=== PATIENT | female | born 1980 | race Two or more races ===

== ENCOUNTER 2016-12-05 06:44 | Emergency (ER) ==
[2016-12-05 06:44] VITALS: BMI 21.2
[2016-12-05 06:52] VITALS: BP 112/73; TEMP 99.9
[2016-12-05] MEDS ORDERED: SODIUM CHLORIDE 1,000 ML IV STA (07:33)
--- NOTE | 2016-12-05 07:33 | DI ---
Aeration: Two radiographic images of the chest. Comparison: None available. Reason for study: Cough. FINDINGS: No pneumothorax, pleural effusion, or focal consolidation. The cardiac silhouette is not enlarged. Impression: No acute cardiopulmonary process.
[2016-12-05 07:47] LABS: FLU INTERNAL QC INTERNAL QC VALID; RAPID FLU A NEGATIVE (NEGATIVE); RAPID FLU B NEGATIVE (NEGATIVE)
[2016-12-05 07:52] LABS: BASOPHILS % (AUTO) 0.3 % (0.0-3.0); HEMATOCRIT 39.1 % (37.0-47.0); HEMOGLOBIN 13.4 g/dl (12.0-16.0); IMMATURE GRANULOCYTE % (AUTO) 0.1 % (0.0-5.0); LYMPHOCYTES % (AUTO) 14.7 (10.0-50.0); MEAN CORPUSCULAR HEMOGLOBIN 31.6 pg (27.0-31.0); MEAN CORPUSCULAR HGB CONC 34.3 (31.8-35.4); MEAN CORPUSCULAR VOLUME 92.2 fl (81.0-99.0); MONOCYTES # (AUTO) 0.4 K/uL (0.4-2.0); MONOCYTES % (AUTO) 6.1 (0-10); NEUTROPHILS # (AUTO) 5.6 K/ul (2.0-6.9); NEUTROPHILS % (AUTO) 78.8; PLATELET COUNT 190 10^3/uL (140-440); RED BLOOD COUNT 4.24 10^6/ul (4.20-5.40); WHITE BLOOD COUNT 7.08 K/ul (4.6-10.2)
[2016-12-05 08:17] LABS: ALANINE AMINOTRANSFERASE 10 U/L (12-78); ALBUMIN 3.9 g/dL (3.4-5.0); ALBUMIN/GLOBULIN RATIO 1.05; ALKALINE PHOSPHATASE 60 U/L (42-98); ANION GAP 13.6; ASPARTATE AMINO TRANSFERASE 12 U/L (15-37); BILIRUBIN,TOTAL 0.46 mg/dL (0.00-1.20); BLOOD UREA NITROGEN 10 mg/dL (7-18); BUN/CREATININE RATIO 11.23; CALCIUM 9.5 mg/dL (8.2-10.2); CARBON DIOXIDE 23 mmol/L (21-32); CHLORIDE 106 mmol/L (98-107); CREATINE KINASE 61 U/L; CREATININE 0.89 mg/dL (0.60-1.30); GLUCOSE 176 mg/dL (70-110); POTASSIUM 3.6 mmol/L (3.5-5.10); SODIUM 139 mmol/L (136-145); TOTAL PROTEIN 7.6 g/dL (6.4-8.2)
--- NOTE | 2016-12-05 08:43 | ED.PDOC ---
General ED Provider: Dr. FRANKLYN PAIGE Chief Complaint: Shortness of Air Stated Complaint: cough , flu like symptoms Time Seen by Physician: 07:00 Mode of Arrival: Walk-In Information Source: Patient Exam Limitations: No limitations Primary Care Provider: DANIEL ZACARIAS Nursing and Triage Documentation Reviewed and Agree: Yes Respiratory Complaint Exam - Respiratory Complaint/Exam Onset/Duration: this morning Symptoms Are: Resolved Initial Severity: Mild Current Severity: None Location: Chest Character: Reports: Non-productive cough Aggravating: Reports: None Alleviating: Reports: None Associated Signs and Symptoms: Denies: Rapid breathing, Dyspnea, Fever, Chills, Chest pain, Pleuritic chest pain, Wheezing, Hemoptysis, Dizziness, Calf pain, Calf swelling, Edema, URI, Nasal congestion, Hoarseness, Sinus discomfort, Vomiting, Sore throat, Weight loss, Decreased oral intake, Increased thirst, Increased appetite, Increased urination History of Healthcare-Acquired Pneumonia: No Related Surgical History: Reports: None Pulmonary Embolism Risk Factors: None Cardiac Risk Factors: Reports: None Pseudomonas Risk Factors: Reports: None Tuberculosis Risk Factors: Reports: None Status Asthmaticus Risk Factors: Reports: None Home Oxygen Use: No Recent Stress Test: No Recent Echo/LV Function: No Current Antibiotic Use: No Current Asthma Medication Use: No Respiratory Distress: None Inadequate Respiratory Effort: No Dysphagia Present: No Stridor Present: No JVD Present: No Accessory Muscle Use: No Retractions: Not Present Diminished Breath Sounds: No Differential Diagnoses: Pneumonia, Bronchitis Review of Systems - Review Of Systems Constitutional: Reports: No symptoms Eyes: Reports: No symptoms Ears, Nose, Mouth, Throat: Reports: No symptoms Respiratory: Reports: Cough, Short of air Cardiac: Reports: No symptoms GI: Reports: No symptoms : Reports: No symptoms Musculoskeletal: Reports: No symptoms Skin: Reports: No symptoms Neurological: Reports: No symptoms Endocrine: Reports: No symptoms Hematologic/Lymphatic: Reports: No symptoms All Other Systems: Reviewed and Negative Past Medical History - Past Medical History Endocrine: Reports: None Cardiovascular: Reports: None Respiratory: Reports: None Hematological: Reports: None Gastrointestinal: Reports: None Genitourinary: Reports: UTI Neuro/Psych: Reports: Anxiety, Depression Musculoskeletal: Reports: None Cancer: Reports: None Last Menstrual Period: 5 days ago Other Pertinent Past Medical History: Trichomonus vaginosis. - Surgical History General Surgical History: Reports: None - Family History Family History: Reports: None - Social History Smoking Status: Never smoker Hx Substance Use: No Alcohol Screening: None Physical Exam - Physical Exam Appearance: Well-appearing, No pain distress, Well-nourished Eyes: NERY, EOMI, Conjunctiva clear ENT: Ears normal, Nose normal, Oropharynx normal Respiratory: Airway patent, Breath sounds clear, Breath sounds equal, Respirations nonlabored Cardiovascular: RRR, Pulses normal, No rub, No murmur GI/: Soft, Nontender, No masses, Bowel sounds normal, No Organomegaly Musculoskeletal: Normal strength, ROM intact, No edema, No calf tenderness Skin: Warm, Dry, Normal color Neurological: Sensation intact, Motor intact, Reflexes intact, Cranial nerves intact, Alert, Oriented Psychiatric: Affect appropriate, Mood appropriate Interpretation - Radiology Interpretation Radiology Interpretation By: Radiologist Radiology Results: No acute changes Critical Care Note - Critical Care Note Total Time (mins): 0 Course - Course Hematology/Chemistry: 12/05/16 07:40 12/05/16 07:40 Orders, Labs, Meds: Lab Review 12/05/16 12/05/16 07:25 07:40 WBC 7.08 RBC 4.24 Hgb 13.4 Hct 39.1 MCV 92.2 MCH 31.6 H MCHC 34.3 RDW Coeff of [place] 11.7 Plt Count 190 Immature Gran % (Auto) 0.1 Neut % (Auto) 78.8 Lymph % (Auto) 14.7 [place] % (Auto) 6.1 Eos % (Auto) 0.0 Baso % (Auto) 0.3 Immature Gran # (Auto) 0.0 Neut # 5.6 Lymph # 1.0 [place] # 0.4 Eos # 0.0 Baso # 0.0 Sodium 139 Potassium 3.6 Chloride 106 Carbon Dioxide 23 Anion Gap 13.6 BUN 10 Creatinine 0.89 Estimated GFR (MDRD) 72.00 BUN/Creatinine Ratio 11.23 Glucose 176 H Lactic Acid 41.5 H Calcium 9.5 Total Bilirubin 0.46 AST 12 L ALT 10 L Alkaline Phosphatase 60 Total Creatine Kinase 61 Troponin I < 0.0100 Total Protein 7.6 Albumin 3.9 Globulin 3.7 Albumin/Globulin Ratio 1.05 Influenza A (Rapid) Negative Influenza B (Rapid) Negative Orders Category Date Time Status EKG-(ED ONLY) Stat CARDIO 12/05/16 07:07 Completed EKG-(ED ONLY) Stat CARDIO 12/05/16 07:07 Stop Req ED IV/MEDIPORT/POWERPORT .ONCE EMERGENCY 12/05/16 07:33 Active ABG Stat LAB 12/05/16 07:08 Ordered BLOOD CULTURE Stat LAB 12/05/16 07:40 Received CBC W/ AUTO DIFF Stat LAB 12/05/16 07:40 Completed COMPREHENSIVE METABOLIC PANEL Stat LAB 12/05/16 07:40 Completed CREATINE KINASE Stat LAB 12/05/16 07:40 Completed LACTIC ACID Stat LAB 12/05/16 07:40 Completed MOLECULAR GROUP A STREP Stat LAB 12/05/16 07:25 Results RAPID FLU A/B Stat LAB 12/05/16 07:25 Completed STREP SCREEN Stat LAB 12/05/16 07:25 Results TROPONIN I Stat LAB 12/05/16 07:40 Completed 0.9 % Sodium Chloride [Saline Flush] MEDS 12/05/16 07:33 Active 1 syr IVF PRN PRN Sodium Chloride 0.9% [Sodium Chloride] 1,000 ml MEDS 12/05/16 07:33 Active IV 125 mls/hr CHEST, 2 VIEWS PA & LAT Stat RADS 12/05/16 07:06 Completed Medications Generic Name Dose Route Start Last Admin Trade Name Freq PRN Reason Stop Dose Admin Sodium Chloride 1,000 mls @ 125 mls/hr 12/05/16 07:33 12/05/16 08:31 Sodium Chloride IV 12/05/16 15:32 125 mls/hr .Q8H STA Administration Sodium Chloride 1 syr 12/05/16 07:33 Saline Flush IVF PRN PRN To flush IV Vital Signs: Temp Pulse Resp BP Pulse Ox 12/05/16 06:44 99.9 F H 128 H 20 112/73 100 Departure - Departure Time of Disposition: 08:42 Disposition: HOME SELF-CARE Discharge Problem: Viral syndrome Instructions: Cold Symptoms (ED), Viral Syndrome (ED) Condition: Good Pt referred to PMD for follow-up: No Additional Instructions: Please call your Family Physician as soon as possible to schedule a follow-up appointment. Allergies/Adverse Reactions: Allergies No Known Allergies Allergy (Verified 12/05/16 06:52) Home Medications: Ambulatory Orders Dextroamphetamine/Amphetamine [Adderall 20 Mg Tablet] 20 mg PO BID #60 Disposition Discussed With: Patient
== END 2016-12-05 08:55 | disposition home or self-care (01) ==
LOC: ED 06:44
DX: B34.9 Viral infection, unspecified (principal); R06.02 Shortness of breath; R73.9 Hyperglycemia, unspecified
CPT/HCPCS: 36415; 80053; 82550; 83605; 84484; 85025; 85379; 87040; 87651; 87804; 87880; 93005; 93010; 96360; 99284; 99285

== ENCOUNTER 2016-12-10 08:21 | Outpatient (CLI) ==
[2016-12-10 09:11] LABS: CHOL/HDL RATIO 3.1 (4.5-5.5)
== END 2016-12-10 08:22 | disposition home or self-care (01) ==
LOC: LAB 08:21
PROVIDERS: ATTEND Nurse Practitioner Family
DX: R94.31 Abnormal electrocardiogram [ECG] [EKG] (principal); E75.6 Lipid storage disorder, unspecified; R73.09 Other abnormal glucose
CPT/HCPCS: 36415; 80061; 83036

== ENCOUNTER 2017-01-04 07:12 | Outpatient (CLI) ==
--- NOTE | 2017-01-06 12:18 | ECHO2D ---
Date of Exam: 01/04/17 [facility]ing Phys[facility] Reason for Echo: ABNORMAL EKG M-Mode Normal Adult Results LV Dimensions Normal Adult Results AoV Opening excursions >1.6 >1.6 LVEDD-base- 3.5-5.8 3.7 Ao root dimensions 2.0-3.7 2.8 LVESD-base- 3.1-4.6 L. Atrium dimensions 1.9-3.8 3.2 Post. Wall thickness 0.8-1.1 0.8 IV septum (thickness) 0.7-1.2 0.8 Post. Wall excursion 0.72-1.3 NORMAL Septal motion NORMAL Systolic motion R. Ventricular cavity 1.5-2.0 NORMAL LVEF 60% 55% Paradoxical septal wall motion NORMAL 2-D : 2-D M Mode Echocardiogram was performed using apical four chamber and left parasternal long and short axis views. Mitral, tricuspid and aortic valves appear to be normal. Contractility of the left ventricle seems to be normal, so is the cavity size. Left atrial cavity size and aortic root appear to be normal. There is no pericardial effusion. There is no thrombus noted in the left ventricular or left aortic cavity. No mitral valve prolapse noted. M-MODE: MV: NORMAL AV: NORMAL TV: NORMAL PV: CHAMBER SIZE: NORMAL WALL MOTION: NORMAL PERICARDIUM: NORMAL INTERPRETATION: 1. NORMAL 2 "D" "M" MODE ECHO MTDD
== END 2017-01-04 07:13 | disposition home or self-care (01) ==
LOC: CAR 07:12
PROVIDERS: ATTEND Internal Medicine
DX: R94.31 Abnormal electrocardiogram [ECG] [EKG] (principal)

== ENCOUNTER 2017-01-11 09:22 | Outpatient (CLI) ==
--- NOTE | 2017-01-13 12:17 | HOLTER ---
PATIENT INFORMATION AND COMMENTS Indications: PALPITATIONS __ Patient Medications: NO MEDICATIONS LISTED __ Pre-procedure Summary: Protocol: Standard Heart Rate Started: 01/11/17940 Minimum: 60 BPM Weight: 120 LBS Ended: 01/12/17828 Maximum: 192 BPM Height: 63" Duration: 22 HRS 47 MIN Average: 91 BPM _ INTERPRETATIONS/OBSERVATIONS: 1. BASIC RHYTHM: SINUS, RATE 60 TO 120/MINUTE, AVERAGE 90/MINUTE 2. FEW INFREQUENT ISOLATED PAC'S AND PVC'S 3. NO ST-T WAVE CHANGES FROM BASELINE 4. ACTIVITY LOG NOT AVAILABLE MTDD
== END 2017-01-11 09:23 | disposition home or self-care (01) ==
LOC: CAR 09:22
PROVIDERS: ATTEND Internal Medicine
DX: R00.2 Palpitations (principal)
CPT/HCPCS: 93224

== ENCOUNTER 2017-01-15 07:20 | Outpatient (CLI) ==
--- NOTE | 2017-01-18 12:50 | STRESSECHO ---
Date of Test: 01/15/17 Reason for Exam: ABNORMAL EKG, PALPITATIONS, CHEST PAIN Ordering Physician: JOSUE Current Medications: ADEROL Resting EKG: SINUS RHYTHM/NO ACUTE CHANGES Target Heart Rate: 157/185 STAGE MPH/GRADE HEART RATE BPM BLOOD PRESSURE mmhg RHYTHM S-T SEGMENT +/- UP DOWN SYMPTOMS,COMMENTS At Rest 90 120/76 SR X NONE 1 1.7/10% 110/70 SR X NONE 2 2.5/12% 3 3.4/14% 4 4.2/16% 5 5.0/18% Immediately after 110/70 SR X NONE Durations of Exercise: 3:00 Maximum Heart Rate Reached: 165 5 MIN POST EXERCISE: SINUS RHYTHM, +/- INTERPRETATION: 99% OXYGEN SATURATION WITH EXERCISE ON ROOM AIR METS 4.6 1. NO EVIDENCE OF ISCHEMIA BY ST-T WAVE 2. NO CHEST PAIN OR CHEST DISCOMFORT 3. POOR EXERCISE TOLERANCE 4. NO ARRHYTHMIAS 5. BLOOD PRESSURE RESPONSE: ADEQUATE NORMAL LEFT VENTRICULAR CONTRACTILITY--RESTING AND POST EXERCISE MTDD
--- NOTE | 2017-01-18 12:59 | ECHOSTRESS ---
Date of Exam: 01/15/17 Ordering Physician: JOSUE Reason for Echo: ABNORMAL EKG, PALPITATIONS, STRESS TEST--NO ISCHEMIA M-Mode Normal Adult Results LV Dimensions Normal Adult Results AoV Opening excursions >1.6 LVEDD-base- 3.5-5.8 Ao root dimensions 2.0-3.7 LVESD-base- 3.1-4.6 L. Atrium dimensions 1.9-3.8 Post. Wall thickness 0.8-1.1 IV septum (thickness) 0.7-1.2 Post. Wall excursion 0.72-1.3 Septal motion Systolic motion R. Ventricular cavity 1.5-2.0 LVEF 60% Paradoxical septal wall motion 2-D: NORMAL LEFT VENTRICULAR CONTRACTILITY--RESTING AND POST EXERCISE M-MODE: MV: AV: TV: PV: CHAMBER SIZE: WALL MOTION: NORMAL LEFT VENTRICULAR CONTRACTILITY--RESTING AND POST EXERCISE PERICARDIUM: INTERPRETATION: 1. NORMAL LEFT VENTRICULAR CONTRACTILITY--RESTING AND POST EXERCISE MTDD
== END 2017-01-15 07:21 | disposition home or self-care (01) ==
LOC: CAR 07:20
PROVIDERS: ATTEND Nurse Practitioner Family
DX: R94.31 Abnormal electrocardiogram [ECG] [EKG] (principal)

== ENCOUNTER 2017-05-05 14:08 | Outpatient (CLI) ==
[2017-05-05 14:27] LABS: BASOPHILS % (AUTO) 0.4 % (0.0-3.0); EOSINOPHILS # (AUTO) 0.1 K/ul (0.0-0.7); EOSINOPHILS % (AUTO) 0.8 % (0.0-7.0); HEMATOCRIT 37.1 % (37.0-47.0); HEMOGLOBIN 12.5 g/dl (12.0-16.0); IMMATURE GRANULOCYTE % (AUTO) 0.3 % (0.0-5.0); LYMPHOCYTES # (AUTO) 2.5 K/uL (0.60-3.4); LYMPHOCYTES % (AUTO) 33.1 (10.0-50.0); MEAN CORPUSCULAR HEMOGLOBIN 31.3 pg (27.0-31.0); MEAN CORPUSCULAR HGB CONC 33.7 (31.8-35.4); MEAN CORPUSCULAR VOLUME 92.8 fl (81.0-99.0); MONOCYTES # (AUTO) 0.4 K/uL (0.4-2.0); MONOCYTES % (AUTO) 5.4 (0-10); NEUTROPHILS # (AUTO) 4.5 K/ul (2.0-6.9); PLATELET COUNT 196 10^3/uL (140-440); WHITE BLOOD COUNT 7.44 K/ul (4.6-10.2)
[2017-05-05 15:17] LABS: ERYTHROCYTE SEDIMENTATION RATE 8 mm/hr (0-20); ESR INTERNAL QC INTERNAL QC VALID
[2017-05-05 15:49] LABS: ALBUMIN 3.3 g/dL (3.4-5.0); ALBUMIN/GLOBULIN RATIO 1.38; ANION GAP 12.2; BILIRUBIN,TOTAL 0.37 mg/dL (0.00-1.20); BUN/CREATININE RATIO 11.42; CALCIUM 8.9 mg/dL (8.2-10.2); CREATININE 0.7 mg/dL (0.60-1.30); POTASSIUM 4.2 mmol/L (3.5-5.10); TOTAL PROTEIN 5.7 g/dL (6.4-8.2)
[2017-05-06 06:18] LABS: TRIIODOTHYRONINE (T3) 104 ng/dL (71-180)
[2017-05-06 08:15] LABS: C-REACTIVE PROTEIN 1.1 mg/L (0.0-4.9); RHEUMATOID ARTHRITIS FACTOR < 10.0 IU/mL (0.0-13.9)
[2017-05-06 09:37] LABS: ANTI-NUCLEAR ANTIBODY SCREEN Negative (Negative)
== END 2017-05-05 14:09 | disposition home or self-care (01) ==
LOC: LAB 14:08
PROVIDERS: ATTEND Emergency Medicine
DX: R73.09 Other abnormal glucose (principal); F41.8 Other specified anxiety disorders; M25.50 Pain in unspecified joint; M25.60 Stiffness of unspecified joint, not elsewhere classified
CPT/HCPCS: 36415; 80053; 80061; 84436; 84443; 84480; 85025; 85651; 86038; 86140; 86430

== ENCOUNTER 2017-07-05 18:44 | Emergency (ER) ==
[2017-07-05 18:50] VITALS: BP 102/61; TEMP 98.5; BMI 22.1
[2017-07-05 19:05] LABS: BILIRUBIN,URINE Negative (NEGATIVE); KETONES,URINE Negative (NEGATIVE); LEUKOCYTE ESTERASE ,URINE Negative (NEGATIVE); NITRITE,URINE Negative (NEGATIVE); PROTEIN,URINE Negative (NEGATIVE); URINE, BLOOD Trace-intact (NEGATIVE)
--- NOTE | 2017-07-05 19:05 | ED.PDOC ---
General ED Provider: Dr. LAMINE ARANDA-ER Chief Complaint: Urinary Problem Stated Complaint: im hurting when i pee for 2 days Time Seen by Physician: 19:00 Mode of Arrival: Walk-In Information Source: Patient Exam Limitations: No limitations Primary Care Provider[facility] Nursing and Triage Documentation Reviewed and Agree: Yes Complaint Exam - UTI Female Complaint/Exam Patient Complains of: Reports: Painful urination Onset/Duration: 2 days Symptoms Are: Still present Timing: Constant Initial Severity: Mild Current Severity: Mild Location of Pain: Reports: Suprapubic Associated Signs and Symptoms: Denies: Fever, Chills, Flank pain, Dyspareunia, Vaginal discharge Patient Rh Status: Unknown CVA Tenderness: No Suprapubic Tenderness: No Differential Diagnoses: Cystitis Review of Systems - Review Of Systems Constitutional: Reports: No symptoms Eyes: Reports: No symptoms Ears, Nose, Mouth, Throat: Reports: No symptoms Respiratory: Reports: No symptoms Cardiac: Reports: No symptoms GI: Reports: No symptoms : Reports: Burning, Dysuria, Frequency Musculoskeletal: Reports: No symptoms Skin: Reports: No symptoms Neurological: Reports: No symptoms Endocrine: Reports: No symptoms Hematologic/Lymphatic: Reports: No symptoms All Other Systems: Reviewed and Negative Past Medical History - Past Medical History Previously Healthy: Yes Endocrine: Reports: None Cardiovascular: Reports: None Respiratory: Reports: None Hematological: Reports: None Gastrointestinal: Reports: None Genitourinary: Reports: UTI Neuro/Psych: Reports: Anxiety, Depression Musculoskeletal: Reports: None Cancer: Reports: None Last Menstrual Period: 1 week Other Pertinent Past Medical History: Trichomonus vaginosis. - Surgical History General Surgical History: Reports: None - Family History Family History: Reports: None - Social History Smoking Status: Never smoker Hx Substance Use: No Alcohol Screening: None Lives: With family - Immunizations Tetanus Shot up to Date: Yes Physical Exam - Physical Exam Appearance: Well-appearing, No pain distress, Well-nourished Eyes: NERY, EOMI, Conjunctiva clear ENT: Ears normal Neck: Supple Respiratory: Airway patent, Breath sounds clear, Breath sounds equal, Respirations nonlabored Cardiovascular: RRR, Pulses normal, No rub, No murmur GI/: Soft, Nontender, No masses, Bowel sounds normal, No Organomegaly Musculoskeletal: Normal strength, ROM intact, No edema, No calf tenderness Skin: Warm, Dry, Normal color Neurological: Sensation intact, Motor intact, Reflexes intact, Cranial nerves intact, Alert, Oriented Psychiatric: Affect appropriate, Mood appropriate Critical Care Note - Critical Care Note Total Time (mins): 0 Course - Course Orders, Labs, Meds: Lab Review 07/05/17 07/05/17 19:00 19:00 Urine Color Yellow Urine Clarity Cloudy Urine pH 6.0 Ur Specific [place] >=1.030 Urine Protein Negative Urine Glucose (UA) Negative Urine Ketones Negative Urine Blood Trace-intact Urine Nitrite Negative Urine Bilirubin Negative Urine Urobilinogen 1.0 Ur Leukocyte Esterase Negative Urine Microscopic RBC 2-5 Urine Microscopic WBC 0-2 Ur Squamous Epith Cells 0-2 Urine Bacteria 3+ Urine Test Negative Orders Category Date Time Status URINALYSIS C & S IF INDICATED Stat LAB 07/05/17 19:00 Completed URINE CULTURE Stat LAB 07/05/17 19:00 Received URINE Stat LAB 07/05/17 19:00 Completed Vital Signs: Temp Pulse Resp BP Pulse Ox 07/05/17 18:47 98.5 F 71 18 102/61 100 Departure - Departure Time of Disposition: 19:19 Disposition: HOME SELF-CARE Discharge Problem: Cystitis Instructions: Urinary Tract Infection in Women (ED) Condition: Good Pt referred to PMD for follow-up: Yes Additional Instructions: cipro 500mg bid x 7days--pyridium 200mg tid with food x 2 days #6--f/u wtih pcp to make sure infction has resolved Allergies/Adverse Reactions: Allergies No Known Allergies Allergy (Verified 07/05/17 18:54) Home Medications: Ambulatory Orders 1 [No Reported Medications] 07/05/17 Disposition Discussed With: Patient
[2017-07-05 19:12] LABS: ADD URINE MICROSCOPIC YES; URINE PREGNANCY INTERNAL QC INTERNAL QC VALID
[2017-07-05 19:13] LABS: BACTERIA,URINE 3+ (NOT PRESENT)
== END 2017-07-05 19:35 | disposition home or self-care (01) ==
LOC: ED 18:44
DX: N30.90 Cystitis, unspecified without hematuria (principal)
CPT/HCPCS: 81001; 81025; 87086; 87186; 99283

== ENCOUNTER 2017-08-25 11:57 | Emergency (ER) ==
[2017-08-25 12:08] VITALS: BP 105/66; TEMP 99.9; BMI 22.8
--- NOTE | 2017-08-25 13:24 | ED.PDOC ---
General ED Provider: Dr. BUDDY CAMPBELL Chief Complaint: Stated Complaint: Recently ; Left flank pain Time Seen by Physician: 13:05 Mode of Arrival: Walk-In Information Source: Patient Exam Limitations: No limitations [facility] Nursing and Triage Documentation Reviewed and Agree: Yes Review of Systems - Review Of Systems Constitutional: Reports: No symptoms Respiratory: Reports: No symptoms Cardiac: Reports: No symptoms GI: Reports: No symptoms : Reports: Flank pain. Denies: Burning, Dysuria, Discharge, Frequency Neurological: Reports: No symptoms All Other Systems: Reviewed and Negative Past Medical History - Past Medical History Previously Healthy: Yes Endocrine: Reports: None Cardiovascular: Reports: None Respiratory: Reports: None Hematological: Reports: None Gastrointestinal: Reports: None Genitourinary: Reports: UTI Neuro/Psych: Reports: Anxiety, Depression Musculoskeletal: Reports: None Cancer: Reports: None Last Menstrual Period: 6-8 months Other Pertinent Past Medical History: Trichomonus vaginosis. - Surgical History General Surgical History: Reports: None - Family History Family History: Reports: None - Social History Smoking Status: Never smoker Hx Substance Use: No Alcohol Screening: None Physical Exam - Physical Exam Appearance: Well-appearing Eyes: NERY ENT: Oropharynx normal Neck: Nonsupple Respiratory: Airway patent, Breath sounds equal Cardiovascular: RRR, Pulses normal GI/: Soft, Nontender, No masses, Bowel sounds normal, Splenomegaly Musculoskeletal: Normal strength, No edema Skin: Warm, Dry, Normal color Neurological: Sensation intact, Motor intact Psychiatric: Affect appropriate, Mood appropriate Critical Care Note - Critical Care Note Total Time (mins): 15 Course - Course Hematology/Chemistry: 08/25/17 13:40 08/25/17 13:40 Orders, Labs, Meds: Lab Review 08/25/17 08/25/17 13:40 13:40 WBC 8.78 RBC 4.14 L Hgb 13.0 Hct 37.7 MCV 91.1 MCH 31.4 H MCHC 34.5 RDW Coeff of [place] 12.2 Plt Count 205 Immature Gran % (Auto) 0.1 Neut % (Auto) 60.4 Lymph % (Auto) 30.4 [place] % (Auto) 8.1 Eos % (Auto) 0.7 Baso % (Auto) 0.3 Immature Gran # (Auto) 0.0 Neut # 5.3 Lymph # 2.7 [place] # 0.7 Eos # 0.1 Baso # 0.0 Sodium 139 Potassium 4.3 Chloride 106 Carbon Dioxide 24 Anion Gap 13.3 BUN 9 Creatinine 0.72 Estimated GFR (MDRD) 92.00 BUN/Creatinine Ratio 12.50 Glucose 88 Calcium 8.9 Total Bilirubin 0.53 AST 17 ALT 8 L Alkaline Phosphatase 43 Total Protein 6.3 L Albumin 3.4 Globulin 2.9 Albumin/Globulin Ratio 1.17 HCG, Quant Pending Orders Category Date Time Status CBC W/ AUTO DIFF Stat LAB 08/25/17 13:40 Completed COMPREHENSIVE METABOLIC PANEL Stat LAB 08/25/17 13:40 Results HCG,QUANTITATIVE Stat LAB 08/25/17 13:40 Results URINALYSIS C & S IF INDICATED Stat LAB 08/25/17 12:50 Received Vital Signs: Temp Pulse Resp BP Pulse Ox 08/25/17 11:58 99.9 F H 89 20 105/66 99 Departure - Departure Time of Disposition: 14:31 Disposition: HOME SELF-CARE Discharge Problem: Flank pain Instructions: Flank Pain (ED) Condition: Good Pt referred to PMD for follow-up: Yes (Call for appointment) Additional Instructions: Follow up with primary care; call back later to verify final lab results. Allergies/Adverse Reactions: Allergies No Known Allergies Allergy (Verified 08/25/17 12:09)
[2017-08-25 13:45] LABS: BASOPHILS % (AUTO) 0.3 % (0.0-3.0); EOSINOPHILS # (AUTO) 0.1 K/ul (0.0-0.7); EOSINOPHILS % (AUTO) 0.7 % (0.0-7.0); HEMATOCRIT 37.7 % (37.0-47.0); IMMATURE GRANULOCYTE % (AUTO) 0.1 % (0.0-5.0); LYMPHOCYTES # (AUTO) 2.7 K/uL (0.60-3.4); LYMPHOCYTES % (AUTO) 30.4 (10.0-50.0); MEAN CORPUSCULAR HEMOGLOBIN 31.4 pg (27.0-31.0); MEAN CORPUSCULAR HGB CONC 34.5 (31.8-35.4); MEAN CORPUSCULAR VOLUME 91.1 fl (81.0-99.0); MONOCYTES # (AUTO) 0.7 K/uL (0.4-2.0); MONOCYTES % (AUTO) 8.1 (0-10); NEUTROPHILS # (AUTO) 5.3 K/ul (2.0-6.9); NEUTROPHILS % (AUTO) 60.4; PLATELET COUNT 205 10^3/uL (140-440); RED BLOOD COUNT 4.14 10^6/ul (4.20-5.40); WHITE BLOOD COUNT 8.78 K/ul (4.6-10.2)
[2017-08-25 14:18] LABS: ALBUMIN 3.4 g/dL (3.4-5.0); ALBUMIN/GLOBULIN RATIO 1.17; ANION GAP 13.3; BILIRUBIN,TOTAL 0.53 mg/dL (0.00-1.20); BUN/CREATININE RATIO 12.5; CALCIUM 8.9 mg/dL (8.2-10.2); CREATININE 0.72 mg/dL (0.60-1.30); POTASSIUM 4.3 mmol/L (3.5-5.10); TOTAL PROTEIN 6.3 g/dL (6.4-8.2)
[2017-08-25 14:36] LABS: ADD URINE MICROSCOPIC NO; BILIRUBIN,URINE Negative (NEGATIVE); KETONES,URINE Negative (NEGATIVE); LEUKOCYTE ESTERASE ,URINE Negative (NEGATIVE); NITRITE,URINE Negative (NEGATIVE); PROTEIN,URINE Negative (NEGATIVE); URINE, BLOOD Negative (NEGATIVE)
== END 2017-08-25 14:38 | disposition home or self-care (01) ==
LOC: ED 11:57
DX: R10.9 Unspecified abdominal pain (principal); Z33.1 Pregnant state, incidental
CPT/HCPCS: 36415; 80053; 81001; 84702; 85025; 99283

== ENCOUNTER 2018-02-16 22:49 | Emergency (ER) | payer OTHER ==
[2018-02-16 23:05] VITALS: BP 102/66; TEMP 98.7; BMI 27.6
--- NOTE | 2018-02-16 23:17 | ED.PDOC ---
General ED Provider: Dr. LAMINE ARANDA-ER Chief Complaint: Abdominal Pain Stated Complaint: im hurting Time Seen by Physician: 23:15 Mode of Arrival: Walk-In Information Source: Patient Exam Limitations: No limitations Primary Care [facility] Nursing and Triage Documentation Reviewed and Agree: Yes Reviewed sepsis parameters & appropriate labs ordered?: Yes System Inflammatory Response Syndrome: Not Applicable Sepsis Protocol: For patient's 13 years and over: Temp is 96.8 and below OR 101 and greater Pulse >90 BPM Resp >20/minute Acutely Altered Mental Status Are patient's symptoms suggestive of a new infection, such as: -Pneumonia -Skin, Soft Tissue -Endocarditis -UTI -Bone, Joint Infection -Implantable Device -Acute Abdominal Infection -Wound Infection -Meningitis -Blood Stream Catheter Infection -Unknown GI Complaint Exam - Abdominal Pain Complaint/Exam Onset: Gradual Duration: several houirs Symptoms Are: Still present Timing: Constant Initial Severity: Moderate Current Severity: Mild Location of Pain: LLQ Radiates To: Reports: Back Character: Reports: Dull, Aching Aggravating: Reports: None Alleviating: Reports: None Associated Signs and Symptoms: Denies: Diaphoresis, Fever, Cough, Chest pain, Dizziness, Back pain, Constipation, Blood in stool, Dysuria, Urinary frequency, Decreased urine output, Decreased appetite, Vaginal bleeding, Vaginal discharge , Nausea, Vomiting, Diarrhea, Sore throat, Decreased activity Ovarian Torsion Risk Factors: Reports: Reproductive age Surgical Obstruction Risk Factors: Reports: None Related Surgical History: Reports: None Patient Rh Status: Unknown Abdominal Findings: Present: None Differential Diagnoses: Constipation, Pancreatitis, UTI, , Ectopic , Ovarian Cyst, PID Review of Systems - Review Of Systems Constitutional: Reports: No symptoms Eyes: Reports: No symptoms Ears, Nose, Mouth, Throat: Reports: No symptoms Respiratory: Reports: No symptoms Cardiac: Reports: No symptoms GI: Reports: Abdominal pain : Reports: No symptoms Musculoskeletal: Reports: No symptoms Skin: Reports: No symptoms Neurological: Reports: No symptoms Endocrine: Reports: No symptoms Hematologic/Lymphatic: Reports: No symptoms All Other Systems: Reviewed and Negative Past Medical History - Past Medical History Previously Healthy: Yes Endocrine: Reports: None Cardiovascular: Reports: None Respiratory: Reports: None Hematological: Reports: None Gastrointestinal: Reports: None Genitourinary: Reports: UTI Neuro/Psych: Reports: Anxiety, Depression Musculoskeletal: Reports: None Cancer: Reports: None Last Menstrual Period: 07/12/17 Other Pertinent Past Medical History: Trichomonus vaginosis. - Surgical History General Surgical History: Reports: None - Family History Family History: Reports: None - Social History Smoking Status: Never smoker Hx Substance Use: No Alcohol Screening: None - Immunizations Tetanus Shot up to Date: Yes Physical Exam - Physical Exam Appearance: Well-appearing, No pain distress, Well-nourished Pain Distress: Mild Eyes: NERY, EOMI, Conjunctiva clear ENT: Ears normal, Nose normal, Oropharynx normal Neck: Supple Respiratory: Airway patent, Breath sounds clear, Breath sounds equal, Respirations nonlabored Cardiovascular: RRR, Pulses normal, No rub, No murmur GI/: Soft, Nontender, No masses, Bowel sounds normal, No Organomegaly Musculoskeletal: Normal strength Skin: Warm Neurological: Sensation intact Psychiatric: Affect appropriate Critical Care Note - Critical Care Note Total Time (mins): 0 Course - Course Orders, Labs, Meds: informed the patient we did not have u/s services--she sees ob at [facility]-- offered to talk to [facility] and transfer the patient but she declines Vital Signs: Temp Pulse Resp BP Pulse Ox 02/16/18 22:57 98.7 F 87 20 102/66 97 Departure - Departure Time of Disposition: 23:17 Disposition: AMA Discharge Problem: Abdominal pain Instructions: Acute Abdominal Pain (ED) Condition: Good Pt referred to PMD for follow-up: No IPMP verified?: No Allergies/Adverse Reactions: Allergies No Known Allergies Allergy (Verified 02/16/18 23:04) Disposition Discussed With: Patient
== END 2018-02-16 23:20 | disposition left against medical advice (07) ==
LOC: ED 22:49
DX: R10.32 Left lower quadrant pain (principal)
CPT/HCPCS: 99281

== ENCOUNTER 2018-07-31 15:20 | Emergency (ER) ==
[2018-07-31 15:23] VITALS: BP 117/77; TEMP 98.7; BMI 24.9
--- NOTE | 2018-07-31 15:34 | ED.PDOC ---
General ED Provider: Dr. LAMINE ARANDA-ER Chief Complaint: Non-specific Complaint Stated Complaint: my legs are hurting Time Seen by Physician: 15:32 Mode of Arrival: Walk-In Information Source: Patient Exam Limitations: No limitations Primary Care Provider: DANIEL ZACARIAS Nursing and Triage Documentation Reviewed and Agree: Yes Does patient meet sepsis criteria?: No System Inflammatory Response Syndrome: Not Applicable Sepsis Protocol: For patient's 13 years and over: Temp is 96.8 and below OR 101 and greater Pulse >90 BPM Resp >20/minute Acutely Altered Mental Status Are patient's symptoms suggestive of a new infection, such as: -Pneumonia -Skin, Soft Tissue -Endocarditis -UTI -Bone, Joint Infection -Implantable Device -Acute Abdominal Infection -Wound Infection -Meningitis -Blood Stream Catheter Infection -Unknown Musculoskeletal Complaint Exam - Lower Extremity Complaint/Exam Location of Pain: Reports: Right, Left, Thigh Mechanism of Injury: Reports: No known trauma Onset/Duration: several weeks Symptoms Are: Still present Onset of Pain: Reports: Immediate Initial Severity: Mild Current Severity: Mild Location: Reports: Diffuse Character: Reports: Dull Aggravating: Reports: Movement, Weight bearing, Prolonged standing Able to Bear Weight: Yes Associated Signs and Symptoms: Reports: Swelling DVT Risk Factors: Reports: Recent travel Septic Arthritis Risk Factors: Reports: None NV Bundle Intact Distal to Injury: Yes Compartment Syndrome Risk Factors: Present: Pain Dheeraj's Sign Present: No Differential Diagnoses: DVT, Phlebitis Review of Systems - Review Of Systems Constitutional: Reports: No symptoms Eyes: Reports: No symptoms Ears, Nose, Mouth, Throat: Reports: No symptoms Respiratory: Reports: No symptoms Cardiac: Reports: No symptoms GI: Reports: No symptoms : Reports: No symptoms Musculoskeletal: Reports: Muscle pain Skin: Reports: No symptoms Neurological: Reports: No symptoms Endocrine: Reports: No symptoms Hematologic/Lymphatic: Reports: No symptoms All Other Systems: Reviewed and Negative Past Medical History - Past Medical History Previously Healthy: Yes Endocrine: Reports: None Cardiovascular: Reports: None Respiratory: Reports: None Hematological: Reports: None Gastrointestinal: Reports: None Genitourinary: Reports: UTI Neuro/Psych: Reports: Anxiety, Depression Musculoskeletal: Reports: None Cancer: Reports: None Last Menstrual Period: 3 weeks ago Other Pertinent Past Medical History: Trichomonus vaginosis. - Surgical History General Surgical History: Reports: None - Family History Family History: Reports: None - Social History Smoking Status: Never smoker Hx Substance Use: No Alcohol Screening: None Physical Exam - Physical Exam Appearance: Well-appearing, No pain distress, Well-nourished Pain Distress: Mild Eyes: NERY, EOMI, Conjunctiva clear ENT: Ears normal, Nose normal, Oropharynx normal Neck: Supple Respiratory: Airway patent Cardiovascular: RRR, Pulses normal, No rub, No murmur GI/: Soft, Nontender, No masses, Bowel sounds normal, No Organomegaly Musculoskeletal: Normal strength Skin: Warm, Dry, Normal color Neurological: Sensation intact, Motor intact, Reflexes intact, Cranial nerves intact, Alert, Oriented Psychiatric: Affect appropriate, Mood appropriate Critical Care Note - Critical Care Note Total Time (mins): 0 Course - Course Orders, Labs, Meds: i offered transfer to a facility to get venous scan of her leg and she declines Vital Signs: Temp Pulse Resp BP Pulse Ox 07/31/18 15:20 98.7 F 83 20 117/77 98 Departure - Departure Time of Disposition: 15:34 Disposition: AMA Discharge Problem: Leg pain, bilateral Instructions: Leg Pain (ED) Condition: Good Pt referred to PMD for follow-up: Yes IPMP verified?: No Additional Instructions: return prn Allergies/Adverse Reactions: Allergies No Known Allergies Allergy (Verified 07/31/18 15:23) Home Medications: Ambulatory Orders 1 [No Reported Medications] 07/31/18 Disposition Discussed With: Patient
== END 2018-07-31 15:35 | disposition left against medical advice (07) ==
LOC: ED 15:20
DX: M79.605 Pain in left leg (principal); M79.604 Pain in right leg
CPT/HCPCS: 99284